=== PATIENT | male | born 1940 ===

== ENCOUNTER 2021-04-26 09:00 | Inpatient (IN) | payer OTHER ==
[~2021-04-26] VITALS: Ht 175.3 cm; Wt 68.0 kg
[2021-04-26] MEDS ORDERED: CRESTOR20 MG PO (09:47)
[2021-04-26] MEDS ORDERED: CARVEDILOL6.25 MG PO (09:48)
[2021-04-26] MEDS ORDERED: MULTIVI PO (09:48)
[2021-04-26] MEDS ORDERED: TAMS0.4C PO (09:48)
[2021-04-26] MEDS ORDERED: OMEGA 3 1,0001 EACH PO (09:49)
[2021-04-29] MEDS ORDERED: MULTI VITAMIN1 EACH PO (07:52)
[2021-04-29] MEDS ORDERED: FLECAINIDE ACE100 MG (07:52)
[2021-05-01] MEDS ORDERED: OXYC1TAB9 PO (06:20)
[2021-05-01] MEDS ORDERED: XARELTO10 MG PO (06:20)
[2021-05-01] MEDS ORDERED: BACTRIM DS TAB1 EACH PO (06:20)
[2021-05-01] MEDS ORDERED: INTEGRA PLUS C1 EACH PO (06:20)
== END 2021-05-01 17:00 | DRG 470 ==
LOC: SURH 04-29 05:28 → O/R 04-29 05:28 → SURH 04-29 09:00
PROVIDERS: ADMIT Orthopaedic Surgery Sports Medicine; ATTEND Orthopaedic Surgery Sports Medicine
PROC: 0SRD0J9 Replacement of Left Knee Joint with Synthetic Substitute, Cemented, Open Approach (ICD-10-PCS; principal; 2021-04-29 10:45)
DX: M17.12 Unilateral primary osteoarthritis, left knee (principal); I10 Essential (primary) hypertension; Z20.822 Contact with and (suspected) exposure to COVID-19